=== PATIENT | male | born 1930 | race Caucasian/White ===

== ENCOUNTER 2017-02-13 09:57 | Emergency (ER) | payer OTHER ==
[~2017-02-13] VITALS: Ht 175.3 cm; Wt 78.0 kg
[~2017-02-13 09:57] MED LIST: ASPIR 8181 MG PO; COREG3.125 MG PO; COUMADIN,JANTO2.5 MG PO; COUMADIN,JANTOVE5 MG PO; COUMADIN2.5 MG PO; COUMADIN5 M1 IV; COUMADIN5 MG PO; DOCUSATE SODIU250 MG PO; FERRONATE325 MG PO; LEVOTHYROXINE88 MCG PO; PAXIL10 MG PO; PRILOSEC20 MG PO; Paxil PO; SYNTHROID125 MCG PO; VITAMIN B-12500 MC4 PO
[2017-02-13 10:40] LABS: HEMATOCRIT 37.3 % (38.0-50.0); MCH 31.1 PG (29.0-34.0); MCV 91.2 FL (86-99); MEAN PLAT.VOLUME 9.7 uM^3 (9.0-12.4); PLATELET COUNT 172 K/uL (156-360); RBC DIS.WIDTH-SD 47.6 % (39-53); RED BLOOD COUNT 4.09 M/uL (4.00-5.50); WHITE BLOOD COUNT 5.2 K/uL (4.1-10.2)
[2017-02-13 10:51] LABS: CHLORIDE 105 mEq/L (99-109); POTASSIUM 4.4 mEq/L (3.7-5.4); SODIUM 138 mEq/L (136-147)
[2017-02-13 10:53] LABS: GLUCOSE 84 mg/dL (70-99)
[2017-02-13 10:55] LABS: ANION GAP 8 MEQ/L (2-14); TOTAL BILIRUBIN 0.4 mg/dL (0.0-1.0)
[2017-02-13 10:57] LABS: ALKALINE PHOSPHATASE 70 IU/L (3-129); GFR ESTIMATE (CALCULATED) > 59 mL/min/
[2017-02-13 10:58] LABS: UREA NITROGEN (BUN) 25 mg/dL (9-23)
[2017-02-13 11:00] LABS: CREATINE KINASE 62 IU/L (1-294); TOTAL CK 62 IU/L (1-294); TROP-I INTERPRETATION NEGATIVE; TROPONIN-I 0.01 ng/mL (0.0-0.30)
[2017-02-13 11:06] LABS: CK-MB 1.3 ng/mL (0.0-4.9)
[2017-02-13 11:58] LABS: ADD MIUA? NO; BILIRUBIN NEGATIVE; BLOOD NEGATIVE; COLOR YELLOW ((YELLOW)); GLUCOSE (STRIP) NEGATIVE; KETONES NEGATIVE; LEUKOCYTES NEGATIVE; NITRITE NEGATIVE; PROTEIN (STRIP) NEGATIVE; SPECIFIC GRAVITY 1.018 (1.000-1.030); UCUL ADDED? NO; UROBILINOGEN 0.2 MG/DL (0.2-1.0)
[2017-02-13 14:13] VITALS: BP 141/95
== END 2017-02-13 14:14 | disposition hospice, home (50) ==
LOC: EME 09:57
PROVIDERS: Emergency Medicine
DX: F03.90 Unspecified dementia, unspecified severity, without behavioral disturbance, psychotic disturbance, mood disturbance, and anxiety (principal); Z91.83 Wandering in diseases classified elsewhere; T69.9XXA Effect of reduced temperature, unspecified, initial encounter; X31.XXXA Exposure to excessive natural cold, initial encounter; Y92.828 Other wilderness area as the place of occurrence of the external cause; R20.0 Anesthesia of skin; I10 Essential (primary) hypertension; K21.9 Gastro-esophageal reflux disease without esophagitis; F32.9 Major depressive disorder, single episode, unspecified; Z86.73 Personal history of transient ischemic attack (TIA), and cerebral infarction without residual deficits; Z79.01 Long term (current) use of anticoagulants; Z66 Do not resuscitate; Z51.5 Encounter for palliative care
CPT/HCPCS: 71020; 80053; 81003; 82550; 82553; 84484; 85027; 93005; 99281; 99285